=== PATIENT | female | born 1960 | race Caucasian/White ===

== ENCOUNTER → 2024-06-28 17:07 | Outpatient (REF) | payer OTHER, SELFPAY | LOC: RAD 17:07 | PROVIDERS: ATTENDING PHYSICIAN Nurse Practitioner Family | DX: M54.41 Lumbago with sciatica, right side (principal) | CPT/HCPCS: 72110 ==

== ENCOUNTER → 2025-10-01 09:27 | Outpatient (REF) | payer MEDICARE, OTHER, SELFPAY | LOC: HWRAD 09:27 | PROVIDERS: ATTENDING PHYSICIAN Nurse Practitioner Adult Health | DX: Z12.31 Encounter for screening mammogram for malignant neoplasm of breast (principal); M81.0 Age-related osteoporosis without current pathological fracture | CPT/HCPCS: 77063; 77067; 77080 ==